=== PATIENT | female | born 1970 ===

== ENCOUNTER 2017-11-28 13:30 | Inpatient (IN) | payer OTHER ==
[2017-12-07] MEDS ORDERED: COLACE100 MG PO (12:17)
[2017-12-07] MEDS ORDERED: CIPRO500 MG PO (12:17)
[2017-12-07] MEDS ORDERED: TANDEM PLUS CA1 EACH PO (12:17)
[2017-12-07] MEDS ORDERED: CELEBREX200MG PO (12:17)
== END 2017-12-07 12:33 | disposition home or self-care (01) | DRG 743 ==
LOC: ADM 13:30 → SURG 12-05 07:00 → O/R 12-05 10:29 → CIR.AMB 12-05 13:30 → EDSTATUS 12-05 13:30 → SURG 12-05 13:30
PROVIDERS: Obstetrics & Gynecology
PROC: 0UJD4ZZ Inspection of Uterus and Cervix, Percutaneous Endoscopic Approach (ICD-10-PCS; 2017-12-05)
PROC: 0UT70ZZ Resection of Bilateral Fallopian Tubes, Open Approach (ICD-10-PCS; 2017-12-05)
PROC: 0DNW0ZZ Release Peritoneum, Open Approach (ICD-10-PCS; 2017-12-05)
PROC: 0USG0ZZ Reposition Vagina, Open Approach (ICD-10-PCS; 2017-12-05)
PROC: 0UT90ZZ Resection of Uterus, Open Approach (ICD-10-PCS; principal; 2017-12-05 07:00)
DX: D25.1 Intramural leiomyoma of uterus (principal); D25.2 Subserosal leiomyoma of uterus; D06.0 Carcinoma in situ of endocervix; N73.6 Female pelvic peritoneal adhesions (postinfective); D06.1 Carcinoma in situ of exocervix; N80.0 Endometriosis of uterus; N84.0 Polyp of corpus uteri